=== PATIENT | female | born 1945 | race Caucasian/White ===

== ENCOUNTER → 2017-03-08 | Day surgery (SDC) | payer OTHER ==
[~2017-03-08] MED LIST: AMLO10TA2 PO; ASPI-630 PO; ATEN100T PO; ATOR20TA58 PO; BENA40TA2 PO; HYDR-2869 PO; IV RINGERS,LACTATED 1000ML 1,000 ML IV SCH; LIDOCAINE 1% 1 ML SYRINGE. ID PRN; LIDOCAINE 2% PF Vial for OR 5 ML VIAL. ONE; MIDAZOLAM HCL/PF 2 MG/2 ML VIAL. IV PRN; PROPOFOL 40 ML IV ONE; fentaNYL PF VIAL 100 MCG/2 ML VIAL IV PRN
[2017-03-08 08:30] VITALS: BP 157/76
--- NOTE | 2017-03-09 17:30 | PATHOLOGY ---
PATHOLOGY REPORT * * * * * * * * FINAL DIAGNOSIS: A. Colon biopsies, transverse colon polyp: - Tubular adenoma. B. Sigmoid colon polypectomy: - Tubular adenoma with high-grade dysplasia. See comment. COMMENT: Sections of the transverse colon biopsy reveal a tubular adenoma showing no high-grade dysplasia or evidence of malignancy. Sections of the sigmoid colon polypectomy reveal a tubular adenoma showing high-grade dysplasia. There is no high-grade dysplasia present at the base of the polyp. The case is also examined by Dr. Mary Chun, who concurs with the diagnosis. (JPM:mgr; 03/09/2017) REPORT ELECTRONICALLY SIGNED BY: Dewayne Portillo M.D. DATE/TIME: 03/09/2017 17:29 * * * * * * * * GROSS PATHOLOGY: A. Received in formalin labeled "Alison Nelson, transverse colon polyp," are multiple segments of miguel soft tissue measuring from 0.2 up to 0.6 cm in maximum dimension. The specimen is submitted entirely in cassette A1. B. Received in formalin labeled "sigmoid polyp," is a segment of polypoid miguel soft tissue measuring 1.3 x 0.7 x 0.5 cm in maximum dimension. The margin is inked and the specimen is bisected and submitted entirely in cassette B1. (JPM; 03/08/17) INITIAL CPT CODE(S): A; 13037 B; 89060 Professional services performed by [facility] at [address] [address] Technical services performed by [facility] at [address] [place] [address], [facility] [address], [place] [address]. SPECIMEN(S) RECEIVED: A.Transverse colon polyp B.Sigmoid polyp CLINICAL HISTORY: Screening PATIENT: ALISON NELSON /AGE: 612/11/1945 (Age: 71) PATIENT #: [id number] ALT CASE #: SPECIMEN COLLECTION DATE: 03/08/2017 SPECIMEN RECEIVED DATE: 03/08/2017 [facility] - [address] [place] [address] - PHONE: [phone] * * * END OF REPORT * * *
== END | disposition home or self-care (01) ==
LOC: ENDOS 06:20
PROVIDERS: ATTEND Internal Medicine Gastroenterology
DX: Z12.11 Encounter for screening for malignant neoplasm of colon (principal); D12.3 Benign neoplasm of transverse colon; D12.5 Benign neoplasm of sigmoid colon; K64.0 First degree hemorrhoids; E78.00 Pure hypercholesterolemia, unspecified; I10 Essential (primary) hypertension; M19.91 Primary osteoarthritis, unspecified site; Z87.39 Personal history of other diseases of the musculoskeletal system and connective tissue; Z90.49 Acquired absence of other specified parts of digestive tract
CPT/HCPCS: 45385; J2704; J2001

== ENCOUNTER 2017-07-03 08:18 | Inpatient (IN) | payer OTHER ==
[~2017-07-03] VITALS: Ht 172.7 cm; Wt 141.1 kg
[~2017-07-03 08:18] MED LIST changes: -IV RINGERS,LACTATED 1000ML 1,000 ML IV SCH; -LIDOCAINE 1% 1 ML SYRINGE. ID PRN; -LIDOCAINE 2% PF Vial for OR 5 ML VIAL. ONE; -MIDAZOLAM HCL/PF 2 MG/2 ML VIAL. IV PRN; -PROPOFOL 40 ML IV ONE; -fentaNYL PF VIAL 100 MCG/2 ML VIAL IV PRN
[2017-07-03 08:47] LABS: BASO # 0.1 x10^3/uL (0.0-0.2); BASO % 1 % (0-3); EOS % 2 % (0-3); HEMATOCRIT 33.4 % (36.0-47.0); HEMOGLOBIN 10.8 g/dL (12.0-15.5); LYMPH % 18 % (24-48); MEAN CORPUSCULAR HEMOGLOBIN 30 pg (25-35); MEAN CORPUSCULAR HGB CONC 32 g/dL (31-37); MEAN CORPUSCULAR VOLUME 93 fL (79-100); MONO % 7 % (0-9); NEUT % 72 % (31-73); PLATELET COUNT 422 x10^3/uL (140-400); RED BLOOD COUNT 3.59 x10^6/uL (3.50-5.40); RED CELL DISTRIBUTION WIDTH 14.6 % (11.5-14.5); WHITE BLOOD COUNT 11.2 x10^3/uL (4.0-11.0)
[2017-07-03 08:49] LABS: CALCIUM 8.9 mg/dL (8.5-10.1); CREATININE 0.9 mg/dL (0.6-1.0); GFR 62.1; POTASSIUM 3.5 mmol/L (3.5-5.1)
[2017-07-03 08:52] LABS: NEG OBC FOB NEG; POS OBC FOB POS
[2017-07-03 08:55] LABS: ALBUMIN 2.4 g/dL (3.4-5.0); ALBUMIN/GLOBULIN RATIO 0.5 (1.0-1.7); INR 1.1 (0.8-1.1); PROTHROMBIN TIME PATIENT 13.6 SEC (11.7-14.0); TOTAL BILIRUBIN 0.3 mg/dL (0.2-1.0); TOTAL PROTEIN 6.9 g/dL (6.4-8.2)
--- NOTE | 2017-07-03 09:18 | PHYS DOC ---
Past Medical History Past Medical History: Arthritis, High Cholesterol, Hypertension Past Surgical History: Hysterectomy, Other Additional Past Surgical Histo: COLONOSCOPY, L ANKLE Alcohol Use: None Drug Use: None Adult General Chief Complaint Chief Complaint: BLOODY STOOL HPI HPI Patient is a 71 year old female who drove herself to the ED with the complaint of black, tarry stools for 2 days. She has had maybe 6 total tarry stools. They are very loose and she sometimes is incontinent of stool. She's had a lot of gas. This morning her stool was black but also looked like it had some blood in it. She has no pain at this time. Patient states last week she had an episode of abdominal pain mostly right upper quadrant and she vomited 4-5 times. She didn't know if it might be some kind of virus. She also had a headache with it and she took "lots of aspirin" at that time. The symptoms are all gone and she was better for several days before the tarry stool started. Patient has never had a GI bleed. She did have a colonoscopy in February and had an abnormal polyp and is supposed to have another one in a year. She's never had an EGD. She denies taking a blood thinner. She does take aspirin 81 mg. No history of GI problems. PCP is Dr. Sears. She did take her scheduled medications this morning but otherwise has been nothing by mouth since she woke up this morning. Review of Systems Review of Systems Constitutional: Denies fever or chills [] HENT: Denies nasal congestion or sore throat [] Respiratory: Denies cough or shortness of breath [] Cardiovascular: Denies chest pain GI: As in history of present illness : Denies dysuria or hematuria [] Musculoskeletal: Denies back pain or joint pain [] Integument: Denies rash or skin lesions [] Neurologic: Denies headache, focal weakness or sensory changes [] Allergies Allergies Allergies Coded Allergies Type Severity Reaction Last Updated Verified No Known Drug Allergies 03/08/17 No Physical Exam Physical Exam Constitutional: Obese female, alert, warm and dry, mentating normally, ambulatory. HENT: Normocephalic, atraumatic, bilateral external ears normal, oropharynx moist, nose normal. [] Eyes: conjunctiva normal, no discharge. [] Neck: Normal range of motion, no stridor. [] Cardiovascular:Heart rate regular rhythm, no murmur [] Lungs & Thorax: Bilateral breath sounds clear to auscultation [] Abdomen: Bowel sounds normal, soft, no tenderness, no masses, no pulsatile masses. [] Rectal: Black, tarry stool present externally which was sent for Hemoccult. Skin: Warm, dry, no erythema, no rash. [] Extremities: No tenderness, no cyanosis, no clubbing, ROM intact, no edema. [] Neurologic: Alert and oriented X 3, normal motor function, no focal deficits noted. [] Current Patient Data Vital Signs Vital Signs Date Time Temp Pulse Resp B/P (MAP) Pulse Ox O2 Delivery O2 Flow Rate FiO2 07/03/17 08:59 61 18 124/59 (80) 95 Room Air 07/03/17 08:20 97.8 97.8 Lab Values Laboratory Tests Test 07/03/17 08:35 White Blood Count 11.2 x10^3/uL (4.0-11.0) H Red Blood Count 3.59 x10^6/uL (3.50-5.40) Hemoglobin 10.8 g/dL (12.0-15.5) L Hematocrit 33.4 % (36.0-47.0) L Mean Corpuscular Volume 93 fL (79-100) Mean Corpuscular Hemoglobin 30 pg (25-35) Mean Corpuscular Hemoglobin Concent 32 g/dL (31-37) Red Cell Distribution Width 14.6 % (11.5-14.5) H Platelet Count 422 x10^3/uL (140-400) H Neutrophils (%) (Auto) 72 % (31-73) Lymphocytes (%) (Auto) 18 % (24-48) L Monocytes (%) (Auto) 7 % (0-9) Eosinophils (%) (Auto) 2 % (0-3) Basophils (%) (Auto) 1 % (0-3) Neutrophils # (Auto) 8.0 x10^3uL (1.8-7.7) H Lymphocytes # (Auto) 2.0 x10^3/uL (1.0-4.8) Monocytes # (Auto) 0.8 x10^3/uL (0.0-1.1) Eosinophils # (Auto) 0.2 x10^3/uL (0.0-0.7) Basophils # (Auto) 0.1 x10^3/uL (0.0-0.2) Prothrombin Time 13.6 SEC (11.7-14.0) Prothrombin Time INR 1.1 (0.8-1.1) PTT 29 SEC (24-38) Stool Occult Blood Positive (NEG) Sodium Level 139 mmol/L (136-145) Potassium Level 3.5 mmol/L (3.5-5.1) Chloride Level 102 mmol/L (98-107) Carbon Dioxide Level 27 mmol/L (21-32) Anion Gap 10 (6-14) Blood Urea Nitrogen 29 mg/dL (7-20) H Creatinine 0.9 mg/dL (0.6-1.0) Estimated GFR (Cockcroft-Gault) 62.1 BUN/Creatinine Ratio 32 (6-20) H Glucose Level 145 mg/dL (70-99) H Calcium Level 8.9 mg/dL (8.5-10.1) Total Bilirubin 0.3 mg/dL (0.2-1.0) Aspartate Amino Transferase (AST) 18 U/L (15-37) Alanine Aminotransferase (ALT) 24 U/L (14-59) Alkaline Phosphatase 91 U/L (46-116) Total Protein 6.9 g/dL (6.4-8.2) Albumin 2.4 g/dL (3.4-5.0) L Albumin/Globulin Ratio 0.5 (1.0-1.7) L Laboratory Tests 07/03/17 08:35 Laboratory Tests 07/03/17 08:35 EKG EKG [] Radiology/Procedures Radiology/Procedures [] Course & Med Decision Making Course & Med Decision Making Pertinent Labs and Imaging studies reviewed. (See chart for details) 71-year-old female presents with 2 days of tarry stools. Her stool is heme positive. She is not tachycardic or hypotensive but she is anemic. She does not have a history of anemia. She needs to have GI consultation for upper endoscopy and have her CBC followed. I recommend to the patient that we admit her to the hospital for this. She is agreeable to that plan. I discussed the case with Dr. gonzalez, [facility]. He will admit her. I wrote bridge orders. We agreed to consult Dr. Singleton, the patient's software development project manager, to see her in the hospital. [] Dragon Disclaimer Dragon Disclaimer This electronic medical record was generated, in whole or in part, using a voice recognition dictation system. Departure Departure Impression: Primary Impression: GI bleed Additional Impression: Anemia Disposition: 09 ADMITTED INPATIENT Admitting Physician: Maryuri Gonzalez Condition: STABLE Referrals: LOS SEARS MD (PCP) Problem Qualifiers CARLOS ISLAS MD Jul 03, 2017 09:18
[2017-07-03] MEDS ORDERED: PANTOPRAZOLE IV PUSH 40 MG VIAL. IVP ONE (09:45)
[2017-07-03] MEDS: IV NORMAL SALINE 1000ML BAG 1,000 ML IV SCH ×2 (10:00→20:03)
[2017-07-03 10:15] VITALS: BP 141/76
--- NOTE | 2017-07-03 10:45 | PDOC2 ---
CONSULT Date of Consult Date of Consult DATE: 07/03/17 TIME: 10:43 Reason for Consult Reason for Consult: Acute blood loss anemia/melena Current Problem List Problem List Problems Medical Problems: (1) Anemia Status: Acute (2) GI bleed Status: Acute Current Medications Current Medications Current Medications Sodium Chloride 1,000 ml @ 100 mls/hr Q10H IV Last administered on 07/03/17 10:00; Start 07/03/17 at 09:40; Stop 07/04/17 at 09:39 Pantoprazole Sodium (PROTONIX VIAL for IV PUSH) 40 mg 1X ONCE IVP Last administered on 07/03/17 10:00; Start 07/03/17 at 09:45; Stop 07/03/17 at 09 :46; Status DC Active Scripts Active Reported Hydralazine Hcl 50 Mg Tablet 50 Mg PO BID Aspirin 81 Mg Tab.chew 81 Mg PO Atorvastatin Calcium 20 Mg Tablet 20 Mg PO HS Amlodipine Besylate 10 Mg Tablet 10 Mg PO DAILY Benazepril Hcl 40 Mg Tablet 40 Mg PO DAILY Atenolol 100 Mg Tablet 100 Mg PO DAILY Allergies Allergies: Coded Allergies: No Known Drug Allergies (Unverified , 03/08/17) Vitals VITALS Vital Signs Date Time Temp Pulse Resp B/P (MAP) Pulse Ox O2 Delivery O2 Flow Rate FiO2 07/03/17 09:59 62 18 132/69 (90) 95 Room Air 07/03/17 08:20 97.8 97.8 Labs Labs Laboratory Tests Test 07/03/17 08:35 White Blood Count 11.2 x10^3/uL (4.0-11.0) Red Blood Count 3.59 x10^6/uL (3.50-5.40) Hemoglobin 10.8 g/dL (12.0-15.5) Hematocrit 33.4 % (36.0-47.0) Mean Corpuscular Volume 93 fL (79-100) Mean Corpuscular Hemoglobin 30 pg (25-35) Mean Corpuscular Hemoglobin Concent 32 g/dL (31-37) Red Cell Distribution Width 14.6 % (11.5-14.5) Platelet Count 422 x10^3/uL (140-400) Neutrophils (%) (Auto) 72 % (31-73) Lymphocytes (%) (Auto) 18 % (24-48) Monocytes (%) (Auto) 7 % (0-9) Eosinophils (%) (Auto) 2 % (0-3) Basophils (%) (Auto) 1 % (0-3) Neutrophils # (Auto) 8.0 x10^3uL (1.8-7.7) Lymphocytes # (Auto) 2.0 x10^3/uL (1.0-4.8) Monocytes # (Auto) 0.8 x10^3/uL (0.0-1.1) Eosinophils # (Auto) 0.2 x10^3/uL (0.0-0.7) Basophils # (Auto) 0.1 x10^3/uL (0.0-0.2) Prothrombin Time 13.6 SEC (11.7-14.0) Prothromb Time International Ratio 1.1 (0.8-1.1) Activated Partial Thromboplast Time 29 SEC (24-38) Stool Occult Blood Positive (NEG) Sodium Level 139 mmol/L (136-145) Potassium Level 3.5 mmol/L (3.5-5.1) Chloride Level 102 mmol/L (98-107) Carbon Dioxide Level 27 mmol/L (21-32) Anion Gap 10 (6-14) Blood Urea Nitrogen 29 mg/dL (7-20) Creatinine 0.9 mg/dL (0.6-1.0) Estimated GFR (Cockcroft-Gault) 62.1 BUN/Creatinine Ratio 32 (6-20) Glucose Level 145 mg/dL (70-99) Calcium Level 8.9 mg/dL (8.5-10.1) Total Bilirubin 0.3 mg/dL (0.2-1.0) Aspartate Amino Transf (AST/SGOT) 18 U/L (15-37) Alanine Aminotransferase (ALT/SGPT) 24 U/L (14-59) Alkaline Phosphatase 91 U/L (46-116) Total Protein 6.9 g/dL (6.4-8.2) Albumin 2.4 g/dL (3.4-5.0) Albumin/Globulin Ratio 0.5 (1.0-1.7) Laboratory Tests Test 07/03/17 08:35 White Blood Count 11.2 x10^3/uL (4.0-11.0) Red Blood Count 3.59 x10^6/uL (3.50-5.40) Hemoglobin 10.8 g/dL (12.0-15.5) Hematocrit 33.4 % (36.0-47.0) Mean Corpuscular Volume 93 fL (79-100) Mean Corpuscular Hemoglobin 30 pg (25-35) Mean Corpuscular Hemoglobin Concent 32 g/dL (31-37) Red Cell Distribution Width 14.6 % (11.5-14.5) Platelet Count 422 x10^3/uL (140-400) Neutrophils (%) (Auto) 72 % (31-73) Lymphocytes (%) (Auto) 18 % (24-48) Monocytes (%) (Auto) 7 % (0-9) Eosinophils (%) (Auto) 2 % (0-3) Basophils (%) (Auto) 1 % (0-3) Neutrophils # (Auto) 8.0 x10^3uL (1.8-7.7) Lymphocytes # (Auto) 2.0 x10^3/uL (1.0-4.8) Monocytes # (Auto) 0.8 x10^3/uL (0.0-1.1) Eosinophils # (Auto) 0.2 x10^3/uL (0.0-0.7) Basophils # (Auto) 0.1 x10^3/uL (0.0-0.2) Prothrombin Time 13.6 SEC (11.7-14.0) Prothromb Time International Ratio 1.1 (0.8-1.1) Activated Partial Thromboplast Time 29 SEC (24-38) Stool Occult Blood Positive (NEG) Sodium Level 139 mmol/L (136-145) Potassium Level 3.5 mmol/L (3.5-5.1) Chloride Level 102 mmol/L (98-107) Carbon Dioxide Level 27 mmol/L (21-32) Anion Gap 10 (6-14) Blood Urea Nitrogen 29 mg/dL (7-20) Creatinine 0.9 mg/dL (0.6-1.0) Estimated GFR (Cockcroft-Gault) 62.1 BUN/Creatinine Ratio 32 (6-20) Glucose Level 145 mg/dL (70-99) Calcium Level 8.9 mg/dL (8.5-10.1) Total Bilirubin 0.3 mg/dL (0.2-1.0) Aspartate Amino Transf (AST/SGOT) 18 U/L (15-37) Alanine Aminotransferase (ALT/SGPT) 24 U/L (14-59) Alkaline Phosphatase 91 U/L (46-116) Total Protein 6.9 g/dL (6.4-8.2) Albumin 2.4 g/dL (3.4-5.0) Albumin/Globulin Ratio 0.5 (1.0-1.7) Assessment/Plan Assessment/Plan Melena- with acute blood loss anemia and ASA use. Most likely secondary to ASA induced DU Plan serial blood counts/transfusional support as needed PPI therapy EGD tentatively tomorrow to further assess Full note dictated VERONICA PURCELL MD Jul 03, 2017 10:45
[2017-07-03] MEDS: PANTOPRAZOLE IV PUSH 40 MG VIAL. IVP SCH (10:57)
[2017-07-03] MEDS: amLODIPine BESYLATE 10 MG TABLET PO SCH (12:00)
[2017-07-03] MEDS: ATENOLOL 50 MG TABLET. PO SCH (12:00)
[2017-07-03] MEDS: LISINOPRIL 40 MG TABLET. PO SCH (12:00)
[2017-07-03 15:35] VITALS: BP 116/61
[2017-07-03 16:32] LABS: HEMATOCRIT 28.3 % (36.0-47.0); HEMOGLOBIN 9.4 g/dL (12.0-15.5); RED BLOOD COUNT 3.04 x10^6/uL (3.50-5.40); RED CELL DISTRIBUTION WIDTH 14.4 % (11.5-14.5); WHITE BLOOD COUNT 8.5 x10^3/uL (4.0-11.0)
--- NOTE | 2017-07-03 16:34 | PDOC1 ---
History and Physical Date of Admission Date of Admission DATE: 07/03/17 TIME: 16:32 History of Present Illness History of Present Illness Ms. Weaver, is a 71 year old female who drove herself to the ED with the complaint of black, tarry stools for 2 days. She has had maybe 6 total tarry stools. They are very loose and she sometimes is incontinent of stool. She's had a lot of gas. This morning her stool was black but also looked like it had some blood in it. She has no pain at this time. Patient states last week she had an episode of abdominal pain mostly right upper quadrant and she vomited 4- 5 times. She didn't know if it might be some kind of virus. She also had a headache with it and she took "lots of aspirin" at that time. The symptoms are all gone and she was better for several days before the tarry stool started. Patient has never had a GI bleed. She did have a colonoscopy in February and had an abnormal polyp and is supposed to have another one in a year. She's never had an EGD. She denies taking a blood thinner. She does take aspirin 81 mg. No history of GI problems. PCP is Dr. Sosa. Past Medical History Cardiovascular: HTN Family History Family History: Family History Unknown Social History Smoke: No ALCOHOL: none Current Problem List Problem List Problems Medical Problems: (1) Anemia Status: Acute (2) GI bleed Status: Acute Problems: Current Medications Current Medications Current Medications Sodium Chloride 1,000 ml @ 100 mls/hr Q10H IV Last administered on 07/03/17 10:00; Start 07/03/17 at 09:40; Stop 07/04/17 at 09:39 Pantoprazole Sodium (PROTONIX VIAL for IV PUSH) 40 mg 1X ONCE IVP Last administered on 07/03/17 10:00; Start 07/03/17 at 09:45; Stop 07/03/17 at 09 :46; Status DC Pantoprazole Sodium (PROTONIX VIAL for IV PUSH) 40 mg DAILYAC IVP ; Start 07/03 at 11:00 Amlodipine Besylate (Norvasc) 10 mg DAILY PO ; Start 07/03/17 at 12:00 Atorvastatin Calcium (Lipitor) 20 mg HS PO ; Start 07/03/17 at 21:00 Atenolol (Tenormin) 100 mg DAILY PO ; Start 07/03/17 at 12:00 Lisinopril (Prinivil) 40 mg DAILY PO ; Start 07/03/17 at 12:00 Active Scripts Active Reported Hydralazine Hcl 50 Mg Tablet 50 Mg PO BID Aspirin 81 Mg Tab.chew 81 Mg PO Atorvastatin Calcium 20 Mg Tablet 20 Mg PO HS Amlodipine Besylate 10 Mg Tablet 10 Mg PO DAILY Benazepril Hcl 40 Mg Tablet 40 Mg PO DAILY Atenolol 100 Mg Tablet 100 Mg PO DAILY Allergies Allergies: Coded Allergies: No Known Drug Allergies (Unverified , 03/08/17) ROS General: YES: Malaise, No: Chills, Night Sweats, Fatigue, Appetite, Other PSYCHOLOGICAL ROS: No: Anxiety, Behavioral Disorder, Concentration difficultie , Decreased libido, Depression, Disorientation, Hallucinations, Hostility, Irritablity, Memory difficulties, Mood Swings, Obsessive thoughts, Physical abuse, Sexual abuse, Sleep disturbances, Suicidal ideation, Other Eyes: No Blurry vision, No Decreased vision, No Double vision, No Dry eyes, No Excessive tearing, No Eye Pain, No Itchy Eyes, No Loss of vision, No Photophobia , No Scotomata, No Uses contacts, No Uses glasses, No Other HEENT: No: Heacaches, Visual Changes, Hearing change, Nasal congestion, Nasal discharge, Oral lesions, Sinus pain, Sore Throat, Epistaxis, Sneezing, Snoring, Tinnitus, Vertigo, Vocal changes, Other Hematological and Lymphatic: No: Bleeding Problems, Blood Clots, Blood Transfusions, Brusing, Night Sweats, Pallor, Swollen Lymph Nodes, Other Respiratory: YES: Cough, No: Hemoptysis, Orthopnea, Pleuritic Pain, Shortness of breath, SOB with excertion, Sputum Changes, Stridor, Tachypnea, Wheezing, Other Cardiovascular: No Chest Pain, No Palpitations, No Orthopnea, No Paroxysmal Noc. Dyspnea, No Edema, No Lt Headedness, No Other Gastrointestinal: Yes Melena, No Nausea, No Vomiting, No Abdominal Pain, No Diarrhea, No Constipation, No Hematochezia, No Other Genitourinary: No Dysuria, No Frequency, No Incontinence, No Hematuria, No Retention, No Discharge, No Urgency, No Pain, No Flank Pain, No Other, No , No , No , No , No , No , No Musculoskeletal: No Gait Disturbance, No Joint Pain, No Joint Stiffness, No Joint Swelling, No Muscle Pain, No Muscular Weakness, No Pain In:, No Swelling In:, No Other Neurological: No Behavorial Changes, No Bowel/Bladder ControlChng, No Confusion , No Dizziness, No Gait Disturbance, No Headaches, No Impaired Coord/balance, No Memory Loss, No Numbness/Tingling, No Seizures, No Speech Problems, No Tremors, No Visual Changes, No Weakness, No Other Skin: No Dry Skin, No Eczema, No Hair Changes, No Lumps, No Mole Changes, No Mottling, No Nail Changes, No Pruritus, No Rash, No Skin Lesion Changes, No Other, No Acne Physical Exam General: Alert, Oriented X3, Cooperative, No acute distress HEENT: Atraumatic, PERRLA, Mucous membr. moist/pink Lungs: Clear to auscultation Heart: no gallops, no murmurs Abdomen: Normal bowel sounds, Soft (not tender, very obese) Extremities: No clubbing, No cyanosis, No edema, Normal pulses Skin: No rashes, No breakdown Neuro: Normal tone, Cranial nerves 3-12 NL Psych/Mental Status: Mood NL Vitals Vitals Vital Signs Date Time Temp Pulse Resp B/P (MAP) Pulse Ox O2 Delivery O2 Flow Rate FiO2 07/03/17 15:35 97.7 63 18 116/61 (79) 95 Room Air 97.7 Labs Labs Laboratory Tests Test 07/03/17 08:35 White Blood Count 11.2 x10^3/uL (4.0-11.0) Red Blood Count 3.59 x10^6/uL (3.50-5.40) Hemoglobin 10.8 g/dL (12.0-15.5) Hematocrit 33.4 % (36.0-47.0) Mean Corpuscular Volume 93 fL (79-100) Mean Corpuscular Hemoglobin 30 pg (25-35) Mean Corpuscular Hemoglobin Concent 32 g/dL (31-37) Red Cell Distribution Width 14.6 % (11.5-14.5) Platelet Count 422 x10^3/uL (140-400) Neutrophils (%) (Auto) 72 % (31-73) Lymphocytes (%) (Auto) 18 % (24-48) Monocytes (%) (Auto) 7 % (0-9) Eosinophils (%) (Auto) 2 % (0-3) Basophils (%) (Auto) 1 % (0-3) Neutrophils # (Auto) 8.0 x10^3uL (1.8-7.7) Lymphocytes # (Auto) 2.0 x10^3/uL (1.0-4.8) Monocytes # (Auto) 0.8 x10^3/uL (0.0-1.1) Eosinophils # (Auto) 0.2 x10^3/uL (0.0-0.7) Basophils # (Auto) 0.1 x10^3/uL (0.0-0.2) Prothrombin Time 13.6 SEC (11.7-14.0) Prothromb Time International Ratio 1.1 (0.8-1.1) Activated Partial Thromboplast Time 29 SEC (24-38) Stool Occult Blood Positive (NEG) Sodium Level 139 mmol/L (136-145) Potassium Level 3.5 mmol/L (3.5-5.1) Chloride Level 102 mmol/L (98-107) Carbon Dioxide Level 27 mmol/L (21-32) Anion Gap 10 (6-14) Blood Urea Nitrogen 29 mg/dL (7-20) Creatinine 0.9 mg/dL (0.6-1.0) Estimated GFR (Cockcroft-Gault) 62.1 BUN/Creatinine Ratio 32 (6-20) Glucose Level 145 mg/dL (70-99) Calcium Level 8.9 mg/dL (8.5-10.1) Total Bilirubin 0.3 mg/dL (0.2-1.0) Aspartate Amino Transf (AST/SGOT) 18 U/L (15-37) Alanine Aminotransferase (ALT/SGPT) 24 U/L (14-59) Alkaline Phosphatase 91 U/L (46-116) Total Protein 6.9 g/dL (6.4-8.2) Albumin 2.4 g/dL (3.4-5.0) Albumin/Globulin Ratio 0.5 (1.0-1.7) Laboratory Tests Test 07/03/17 08:35 White Blood Count 11.2 x10^3/uL (4.0-11.0) Red Blood Count 3.59 x10^6/uL (3.50-5.40) Hemoglobin 10.8 g/dL (12.0-15.5) Hematocrit 33.4 % (36.0-47.0) Mean Corpuscular Volume 93 fL (79-100) Mean Corpuscular Hemoglobin 30 pg (25-35) Mean Corpuscular Hemoglobin Concent 32 g/dL (31-37) Red Cell Distribution Width 14.6 % (11.5-14.5) Platelet Count 422 x10^3/uL (140-400) Neutrophils (%) (Auto) 72 % (31-73) Lymphocytes (%) (Auto) 18 % (24-48) Monocytes (%) (Auto) 7 % (0-9) Eosinophils (%) (Auto) 2 % (0-3) Basophils (%) (Auto) 1 % (0-3) Neutrophils # (Auto) 8.0 x10^3uL (1.8-7.7) Lymphocytes # (Auto) 2.0 x10^3/uL (1.0-4.8) Monocytes # (Auto) 0.8 x10^3/uL (0.0-1.1) Eosinophils # (Auto) 0.2 x10^3/uL (0.0-0.7) Basophils # (Auto) 0.1 x10^3/uL (0.0-0.2) Prothrombin Time 13.6 SEC (11.7-14.0) Prothromb Time International Ratio 1.1 (0.8-1.1) Activated Partial Thromboplast Time 29 SEC (24-38) Stool Occult Blood Positive (NEG) Sodium Level 139 mmol/L (136-145) Potassium Level 3.5 mmol/L (3.5-5.1) Chloride Level 102 mmol/L (98-107) Carbon Dioxide Level 27 mmol/L (21-32) Anion Gap 10 (6-14) Blood Urea Nitrogen 29 mg/dL (7-20) Creatinine 0.9 mg/dL (0.6-1.0) Estimated GFR (Cockcroft-Gault) 62.1 BUN/Creatinine Ratio 32 (6-20) Glucose Level 145 mg/dL (70-99) Calcium Level 8.9 mg/dL (8.5-10.1) Total Bilirubin 0.3 mg/dL (0.2-1.0) Aspartate Amino Transf (AST/SGOT) 18 U/L (15-37) Alanine Aminotransferase (ALT/SGPT) 24 U/L (14-59) Alkaline Phosphatase 91 U/L (46-116) Total Protein 6.9 g/dL (6.4-8.2) Albumin 2.4 g/dL (3.4-5.0) Albumin/Globulin Ratio 0.5 (1.0-1.7) VTE Prophylaxis Ordered VTE Prophylaxis Devices: Yes VTE Pharmacological Prophylaxi: Contraindicated Assessment/Plan Assessment/Plan GI bleed, upper, anemia of acute blood loss from gastritis, start IV PPI acute melena overuse of aspirin, NSAID gastric reaction, IV PPI, condsider carafate, may get EGD in AM, from GI consult, on clears morbid obesity, BMI 47 htn, multiple agents, hold one for bleeding, vitals good admit DORON PHAN MD Jul 03, 2017 16:34
--- NOTE | 2017-07-03 17:20 | CONS ---
DATE OF CONSULTATION: 07/03/2017 REFERRING PHYSICIAN: Maryuri Gonzalez MD. REASON FOR CONSULTATION: Acute blood loss anemia and melena with aspirin use. HISTORY OF PRESENT ILLNESS: A 71-year-old female with past medical history significant for arthritis, hyperlipidemia, hypertension, status post hysterectomy, is seen with some right-sided abdominal pain. She began taking aspirin 3-4 at a time for headaches. Over the past several days, she has passed approximately six dark stools, which have been melenic and foul smelling in nature. Never had ulcers before. Denies any hematemesis, dysphagia, odynophagia. Prior colonoscopy was unrevealing for pathology. With the pain and the persistent bleeding stools, she has been admitted for further evaluation and care. PAST MEDICAL HISTORY: Arthritis, hyperlipidemia, hypertension, status post hysterectomy. ALLERGIES: None. MEDICATIONS: Include Protonix 40 mg daily. SOCIAL HISTORY: She is retired. Does not drink or smoke. FAMILY HISTORY: Noncontributory. REVIEW OF SYSTEMS: Per records. PHYSICAL EXAMINATION: GENERAL: A well-nourished, well-developed, pale female. VITAL SIGNS: Temperature is 97.8, pulse 52, respirations 18, blood pressure is 132/69. HEENT: Head is normocephalic, atraumatic. Pupils and extraocular movements are not tested. Sclerae are anicteric. NECK: Supple. LUNGS: Clear. CARDIOVASCULAR: Reveals an S1, S2 without S3, S4 or appreciable murmur. ABDOMEN: Soft abdomen, normal bowel sounds, without appreciable hepatosplenomegaly, with infraumbilical hysterectomy incision. EXTREMITIES: Reveals no cyanosis, clubbing or edema. LABORATORY STUDIES: Sodium 139, potassium 3.5, chloride 102, BUN 29, creatinine 0.9, glucose is 145, calcium 8.9. Total bilirubin 0.3, AST of 18, ALT of 24, alkaline phosphatase of 91, total protein 6.9, albumin 2.4. INR is 1.1. Hemoglobin 10.8, hematocrit 33.4, white count 11.2. IMPRESSION: Acute blood loss anemia with nonsteroidal antiinflammatory drug use, melena is most likely secondary to nonsteroidal antiinflammatory drug--induced peptic ulcer. We will recommend PPI therapy, serial blood counts, transfusion support and EGD tomorrow to further assess. Risks and benefits have been discussed with the patient and she is willing to proceed at this time. VERONICA PURCELL MD DR: KARSTEN/cyn JOB#: [id number] / [id number] MARYURI Garrison MD
[2017-07-03 19:00] VITALS: BP 146/82
[2017-07-03] MEDS: ATORVASTATIN CALCIUM 20 MG TABLET PO SCH (20:04)
[2017-07-03 23:00] VITALS: BP 142/63
[2017-07-04 03:00] VITALS: BP 129/74
[2017-07-04 04:17] LABS: BASO # 0.1 x10^3/uL (0.0-0.2); BASO % 1 % (0-3); EOS % 2 % (0-3); HEMATOCRIT 26.7 % (36.0-47.0); HEMOGLOBIN 8.6 g/dL (12.0-15.5); LYMPH # 2.1 x10^3/uL (1.0-4.8); LYMPH % 23 % (24-48); MEAN CORPUSCULAR HEMOGLOBIN 30 pg (25-35); MEAN CORPUSCULAR HGB CONC 32 g/dL (31-37); MEAN CORPUSCULAR VOLUME 93 fL (79-100); MONO % 7 % (0-9); NEUT % 67 % (31-73); PLATELET COUNT 326 x10^3/uL (140-400); RED BLOOD COUNT 2.86 x10^6/uL (3.50-5.40); RED CELL DISTRIBUTION WIDTH 14.6 % (11.5-14.5); WHITE BLOOD COUNT 9.2 x10^3/uL (4.0-11.0)
[2017-07-04] MEDS: IV NORMAL SALINE 1000ML BAG 1,000 ML IV SCH (05:58)
[2017-07-04 07:00] VITALS: BP 112/64
[2017-07-04] MEDS: PANTOPRAZOLE IV PUSH 40 MG VIAL. IVP SCH (07:46)
[2017-07-04] MEDS: amLODIPine BESYLATE 10 MG TABLET PO SCH (08:53)
[2017-07-04] MEDS: LISINOPRIL 40 MG TABLET. PO SCH (08:54)
[2017-07-04] MEDS: ATENOLOL 50 MG TABLET. PO SCH (08:54)
[2017-07-04] MEDS ORDERED: IV RINGERS,LACTATED 1000ML 1,000 ML IV SCH (09:08)
[2017-07-04] MEDS ORDERED: LIDOCAINE 1% PF 2 ML VIAL. ID PRN (09:15)
[2017-07-04] MEDS ORDERED: ONDANSETRON PF 4 MG/2 ML VIAL. IV PRN (09:15)
[2017-07-04] MEDS ORDERED: PROCHLORPERAZINE 10 MG/2 ML VIAL. IV PRN (09:15)
[2017-07-04] MEDS ORDERED: fentaNYL PF VIAL 100 MCG/2 ML VIAL IV PRN ×2 (09:15)
[2017-07-04] MEDS ORDERED: MORPHINE SULFATE 2 MG/ML DISP.SYRIN. IV PRN (09:15)
[2017-07-04] MEDS ORDERED: HYDROmorphone 2 MG/ML VIAL IV PRN (09:15)
[2017-07-04 11:00] VITALS: BP 120/43
--- NOTE | 2017-07-04 11:15 | PDOC ---
PROGRESS NOTES Chief Complaint Chief Complaint Upper GI bleed Melena Morbid obesity BMI 47.7 Hypertension, controlled Headaches History of Present Illness History of Present Illness Still continues to have melena Vital signs stable, asymptomatic, "feels fine" Hemoglobin dropping from 10 on admission, down to 9, now 8.6. Platelets adequate Stool occult positive Plan: EGD later 4 PM H&H again tomorrow Continue PPI Needs to stop aspirin 81 and NSAIDs, she understands She claims she would finish a bottle of NSAIDs in 2 days because of headaches Did tell her about [id number] capsaicin cream, Voltaren gel for arthritis if she gets it Continue IVF Vitals Vitals Vital Signs Date Time Temp Pulse Resp B/P (MAP) Pulse Ox O2 Delivery O2 Flow Rate FiO2 07/04/17 08:54 72 112/64 07/04/17 07:30 Room Air 07/04/17 07:00 97.1 18 98 97.1 Physical Exam General: Alert, Oriented X3, Cooperative, No acute distress Abdomen: Normal bowel sounds, Soft (not tender, very obese) Extremities: No clubbing, No cyanosis, No edema, Normal pulses Skin: No rashes, No breakdown Labs LABS Laboratory Tests Test 07/04/17 03:30 White Blood Count 9.2 x10^3/uL (4.0-11.0) Red Blood Count 2.86 x10^6/uL (3.50-5.40) Hemoglobin 8.6 g/dL (12.0-15.5) Hematocrit 26.7 % (36.0-47.0) Mean Corpuscular Volume 93 fL (79-100) Mean Corpuscular Hemoglobin 30 pg (25-35) Mean Corpuscular Hemoglobin Concent 32 g/dL (31-37) Red Cell Distribution Width 14.6 % (11.5-14.5) Platelet Count 326 x10^3/uL (140-400) Neutrophils (%) (Auto) 67 % (31-73) Lymphocytes (%) (Auto) 23 % (24-48) Monocytes (%) (Auto) 7 % (0-9) Eosinophils (%) (Auto) 2 % (0-3) Basophils (%) (Auto) 1 % (0-3) Neutrophils # (Auto) 6.2 x10^3uL (1.8-7.7) Lymphocytes # (Auto) 2.1 x10^3/uL (1.0-4.8) Monocytes # (Auto) 0.6 x10^3/uL (0.0-1.1) Eosinophils # (Auto) 0.2 x10^3/uL (0.0-0.7) Basophils # (Auto) 0.1 x10^3/uL (0.0-0.2) Review of Systems Review of Systems Headaches otherwise rest of 14 point systems reviewed negative Assessment and Plan Assessmemt and Plan Problems Medical Problems: (1) Anemia Status: Acute (2) GI bleed Status: Acute Problems: Comment Review of Relevant I have reviewed the following items sarah (where applicable) has been applied. Labs Laboratory Tests Test 07/03/17 04:25 07/03/17 08:35 07/04/17 03:30 White Blood Count 8.5 x10^3/uL (4.0-11.0) 11.2 x10^3/uL (4.0-11.0) 9.2 x10^3/uL (4.0-11.0) Red Blood Count 3.04 x10^6/uL (3.50-5.40) 3.59 x10^6/uL (3.50-5.40) 2.86 x10^6/uL (3.50-5.40) Hemoglobin 9.4 g/dL (12.0-15.5) 10.8 g/dL (12.0-15.5) 8.6 g/dL (12.0-15.5) Hematocrit 28.3 % (36.0-47.0) 33.4 % (36.0-47.0) 26.7 % (36.0-47.0) Mean Corpuscular Volume 93 fL (79-100) 93 fL (79-100) 93 fL (79-100) Mean Corpuscular Hemoglobin 31 pg (25-35) 30 pg (25-35) 30 pg (25-35) Mean Corpuscular Hemoglobin Concent 33 g/dL (31-37) 32 g/dL (31-37) 32 g/dL (31-37) Red Cell Distribution Width 14.4 % (11.5-14.5) 14.6 % (11.5-14.5) 14.6 % (11.5-14.5) Platelet Count 339 x10^3/uL (140-400) 422 x10^3/uL (140-400) 326 x10^3/uL (140-400) Neutrophils (%) (Auto) 72 % (31-73) 67 % (31-73) Lymphocytes (%) (Auto) 18 % (24-48) 23 % (24-48) Monocytes (%) (Auto) 7 % (0-9) 7 % (0-9) Eosinophils (%) (Auto) 2 % (0-3) 2 % (0-3) Basophils (%) (Auto) 1 % (0-3) 1 % (0-3) Neutrophils # (Auto) 8.0 x10^3uL (1.8-7.7) 6.2 x10^3uL (1.8-7.7) Lymphocytes # (Auto) 2.0 x10^3/uL (1.0-4.8) 2.1 x10^3/uL (1.0-4.8) Monocytes # (Auto) 0.8 x10^3/uL (0.0-1.1) 0.6 x10^3/uL (0.0-1.1) Eosinophils # (Auto) 0.2 x10^3/uL (0.0-0.7) 0.2 x10^3/uL (0.0-0.7) Basophils # (Auto) 0.1 x10^3/uL (0.0-0.2) 0.1 x10^3/uL (0.0-0.2) Prothrombin Time 13.6 SEC (11.7-14.0) Prothromb Time International Ratio 1.1 (0.8-1.1) Activated Partial Thromboplast Time 29 SEC (24-38) Stool Occult Blood Positive (NEG) Sodium Level 139 mmol/L (136-145) Potassium Level 3.5 mmol/L (3.5-5.1) Chloride Level 102 mmol/L (98-107) Carbon Dioxide Level 27 mmol/L (21-32) Anion Gap 10 (6-14) Blood Urea Nitrogen 29 mg/dL (7-20) Creatinine 0.9 mg/dL (0.6-1.0) Estimated GFR (Cockcroft-Gault) 62.1 BUN/Creatinine Ratio 32 (6-20) Glucose Level 145 mg/dL (70-99) Calcium Level 8.9 mg/dL (8.5-10.1) Total Bilirubin 0.3 mg/dL (0.2-1.0) Aspartate Amino Transf (AST/SGOT) 18 U/L (15-37) Alanine Aminotransferase (ALT/SGPT) 24 U/L (14-59) Alkaline Phosphatase 91 U/L (46-116) Total Protein 6.9 g/dL (6.4-8.2) Albumin 2.4 g/dL (3.4-5.0) Albumin/Globulin Ratio 0.5 (1.0-1.7) Laboratory Tests Test 07/04/17 03:30 White Blood Count 9.2 x10^3/uL (4.0-11.0) Red Blood Count 2.86 x10^6/uL (3.50-5.40) Hemoglobin 8.6 g/dL (12.0-15.5) Hematocrit 26.7 % (36.0-47.0) Mean Corpuscular Volume 93 fL (79-100) Mean Corpuscular Hemoglobin 30 pg (25-35) Mean Corpuscular Hemoglobin Concent 32 g/dL (31-37) Red Cell Distribution Width 14.6 % (11.5-14.5) Platelet Count 326 x10^3/uL (140-400) Neutrophils (%) (Auto) 67 % (31-73) Lymphocytes (%) (Auto) 23 % (24-48) Monocytes (%) (Auto) 7 % (0-9) Eosinophils (%) (Auto) 2 % (0-3) Basophils (%) (Auto) 1 % (0-3) Neutrophils # (Auto) 6.2 x10^3uL (1.8-7.7) Lymphocytes # (Auto) 2.1 x10^3/uL (1.0-4.8) Monocytes # (Auto) 0.6 x10^3/uL (0.0-1.1) Eosinophils # (Auto) 0.2 x10^3/uL (0.0-0.7) Basophils # (Auto) 0.1 x10^3/uL (0.0-0.2) Medications Current Medications Sodium Chloride 1,000 ml @ 100 mls/hr Q10H IV Last administered on 07/04/17 05:58; Start 07/03/17 at 09:40; Stop 07/04/17 at 09:39; Status DC Pantoprazole Sodium (PROTONIX VIAL for IV PUSH) 40 mg 1X ONCE IVP Last administered on 07/03/17 10:00; Start 07/03/17 at 09:45; Stop 07/03/17 at 09 :46; Status DC Pantoprazole Sodium (PROTONIX VIAL for IV PUSH) 40 mg DAILYAC IVP Last administered on 07/04/17 07:46; Start 07/03/17 at 11:00 Amlodipine Besylate (Norvasc) 10 mg DAILY PO Last administered on 07/04/17 08 :53; Start 07/03/17 at 12:00 Atorvastatin Calcium (Lipitor) 20 mg HS PO Last administered on 07/03/17 20: 04; Start 07/03/17 at 21:00 Atenolol (Tenormin) 100 mg DAILY PO Last administered on 07/04/17 08:54; Start 07/03/17 at 12:00 Lisinopril (Prinivil) 40 mg DAILY PO Last administered on 07/04/17 08:54; Start 07/03/17 at 12:00 Ondansetron HCl (Zofran) 4 mg PRN Q6HRS PRN IV NAUSEA/VOMITING; Start at 09:15; Stop 07/04/17 at 18:00 Fentanyl Citrate (Fentanyl 2ml Vial) 25 mcg PRN Q5MIN PRN IV MILD PAIN; Start 07/04/17 at 09:15; Stop 07/04/17 at 18:00 Fentanyl Citrate (Fentanyl 2ml Vial) 50 mcg PRN Q5MIN PRN IV MODERATE TO SEVERE PAIN; Start 07/04/17 at 09:15; Stop 07/04/17 at 09:16; Status DC Morphine Sulfate 1 mg PRN Q10MIN PRN IV SEVERE PAIN; Start 07/04/17 at 09:15; Stop 07/04/17 at 18:00 Ringer's Solution 1,000 ml @ 30 mls/hr Q24H IV ; Start 07/04/17 at 09:08; Stop 07/04/17 at 21:07 Lidocaine HCl (Xylocaine-Mpf 1% Vial) 2 ml 1X PRN PRN ID IV START; Start 07/04 at 09:15; Stop 07/04/17 at 18:00 Hydromorphone HCl (Dilaudid) 0.5 mg PRN Q10MIN PRN IV SEV PAIN, Second choice; Start 07/04/17 at 09:15; Stop 07/04/17 at 18:00 Prochlorperazine Edisylate (Compazine) 5 mg PACU PRN PRN IV NAUSEA, MRX1; Start 07/04/17 at 09:15; Stop 07/04/17 at 18:00 Active Scripts Active Reported Hydralazine Hcl 50 Mg Tablet 50 Mg PO BID Aspirin 81 Mg Tab.chew 81 Mg PO Atorvastatin Calcium 20 Mg Tablet 20 Mg PO HS Amlodipine Besylate 10 Mg Tablet 10 Mg PO DAILY Benazepril Hcl 40 Mg Tablet 40 Mg PO DAILY Atenolol 100 Mg Tablet 100 Mg PO DAILY Vitals/I & O Vital Sign - Last 24 Hours 07/03/17 07/03/17 07/03/17 07/03/17 15:35 19:00 19:05 23:00 Temp 97.7 96.6 96.5 97.7 96.6 96.5 Pulse 63 76 67 Resp 18 18 18 B/P (MAP) 116/61 (79) 146/82 (103) 142/63 (89) Pulse Ox 95 97 96 O2 Delivery Room Air Room Air Room Air Room Air 07/04/17 07/04/17 07/04/17 07/04/17 03:00 07:00 07:30 08:53 Temp 96.9 97.1 96.9 97.1 Pulse 70 72 72 Resp 18 18 B/P (MAP) 129/74 (92) 112/64 (80) 112/64 Pulse Ox 95 98 O2 Delivery Room Air Room Air Room Air 07/04/17 07/04/17 08:54 08:54 Pulse 72 72 B/P (MAP) 112/64 112/64 Intake and Output 07/03/17 07/03/17 07/04/17 15:00 23:00 07:00 Intake Total 360 ml 1360 ml 1360 ml Balance 360 ml 1360 ml 1360 ml MACK LAWS MD Jul 04, 2017 11:15
[2017-07-04] MEDS ORDERED: LIDOCAINE 2% PF Vial for OR 5 ML VIAL. ONE (15:42)
[2017-07-04] MEDS ORDERED: PROPOFOL 20 ML IV ONE ×2 (15:42→16:24)
[2017-07-04] MEDS ORDERED: EPINEPHrine SYRINGE 1 MG/10 ML SYRINGE IV ONE (16:18)
--- NOTE | 2017-07-04 16:38 | PDOC4 ---
Operative Note Operative Note EGD with bx/therapeutic control of bleeding Meds propofol per anesthesia Pre-op dx acute blood loss anemia/melena Post-op dx non-erosive gastritis s/p bx duodenal ulcer 2d portion medical wall s/p epi injectoin/endo- clip/bipolar cautery Plan PPI therapy Serial CBCs advance diet in am if Hg stable. VERONICA PURCELL MD Jul 04, 2017 16:38
[2017-07-04] MEDS ORDERED: EPINEPHrine SYRINGE 1 MG/10 ML SYRINGE ONE (16:56)
[2017-07-04 19:00] VITALS: BP 123/62
[2017-07-04] MEDS: ATORVASTATIN CALCIUM 20 MG TABLET PO SCH (20:53)
[2017-07-04 23:00] VITALS: BP 133/63
[2017-07-05] MEDS: IV NORMAL SALINE 1000ML BAG 1,000 ML IV SCH ×3 (01:03→20:36)
[2017-07-05 03:00] VITALS: BP 131/65
[2017-07-05 06:12] LABS: HEMATOCRIT 24.6 % (36.0-47.0); HEMOGLOBIN 8.2 g/dL (12.0-15.5)
[2017-07-05 07:00] VITALS: BP 132/74
[2017-07-05] MEDS: PANTOPRAZOLE IV PUSH 40 MG VIAL. IVP SCH (07:32)
[2017-07-05] MEDS: ATENOLOL 50 MG TABLET. PO SCH (09:13)
[2017-07-05] MEDS: amLODIPine BESYLATE 10 MG TABLET PO SCH (09:13)
[2017-07-05] MEDS: LISINOPRIL 40 MG TABLET. PO SCH (09:14)
--- NOTE | 2017-07-05 10:07 | PDOC ---
PROGRESS NOTES Chief Complaint Chief Complaint Duodenal ulcer by EGD 07/04 status post cautery, clipping, epinephrine injection Melena Morbid obesity BMI 47.7 Hypertension, controlled Headaches History of Present Illness History of Present Illness EGD results noted, duodenal ulcer status post epinephrine, clipping, cautery Some mild melena today and yesterday postprocedure, but patient claims it's coming down Hemoglobin slightly dropped to 8.2 from 8.6 yesterday from 10 the previous day Vital signs remain stable No headaches She describes the headaches to me as feeling "sinusitis and stuffy" That's why she took one hold bottle of ibuprofen and finished this in 2 days Did discuss about H2 antagonist which is [id number] and even Flonase nasal sprays. She understands. She is hungry, wants to go home soon Plan: Started on ice chips by GI, we'll defer diet to them Patient understands H&H tomorrow Possible discharge 24-48 hrs. Understands that she cannot take aspirin or NSAIDs anymore Vitals Vitals Vital Signs Date Time Temp Pulse Resp B/P (MAP) Pulse Ox O2 Delivery O2 Flow Rate FiO2 07/05/17 09:14 68 132/74 07/05/17 07:30 Room Air 07/05/17 07:00 97.9 20 96 97.9 07/04/17 16:31 4 Physical Exam General: Alert, Oriented X3, Cooperative, No acute distress Heart: Regular rate Lungs: Clear Abdomen: Normal bowel sounds, Soft (not tender, very obese) Extremities: No clubbing, No cyanosis, No edema, Normal pulses Skin: No rashes, No breakdown Labs LABS Laboratory Tests Test 07/05/17 03:35 Hemoglobin 8.2 g/dL (12.0-15.5) Hematocrit 24.6 % (36.0-47.0) Mean Corpuscular Hemoglobin Concent 33 g/dL (31-37) Review of Systems Review of Systems Denies 14 point systems reviewed with her Assessment and Plan Assessmemt and Plan Problems Medical Problems: (1) Anemia Status: Acute (2) GI bleed Status: Acute Problems: Comment Review of Relevant I have reviewed the following items sarah (where applicable) has been applied. Labs Laboratory Tests Test 07/04/17 03:30 07/05/17 03:35 White Blood Count 9.2 x10^3/uL (4.0-11.0) Red Blood Count 2.86 x10^6/uL (3.50-5.40) Hemoglobin 8.6 g/dL (12.0-15.5) 8.2 g/dL (12.0-15.5) Hematocrit 26.7 % (36.0-47.0) 24.6 % (36.0-47.0) Mean Corpuscular Volume 93 fL (79-100) Mean Corpuscular Hemoglobin 30 pg (25-35) Mean Corpuscular Hemoglobin Concent 32 g/dL (31-37) 33 g/dL (31-37) Red Cell Distribution Width 14.6 % (11.5-14.5) Platelet Count 326 x10^3/uL (140-400) Neutrophils (%) (Auto) 67 % (31-73) Lymphocytes (%) (Auto) 23 % (24-48) Monocytes (%) (Auto) 7 % (0-9) Eosinophils (%) (Auto) 2 % (0-3) Basophils (%) (Auto) 1 % (0-3) Neutrophils # (Auto) 6.2 x10^3uL (1.8-7.7) Lymphocytes # (Auto) 2.1 x10^3/uL (1.0-4.8) Monocytes # (Auto) 0.6 x10^3/uL (0.0-1.1) Eosinophils # (Auto) 0.2 x10^3/uL (0.0-0.7) Basophils # (Auto) 0.1 x10^3/uL (0.0-0.2) Laboratory Tests Test 07/05/17 03:35 Hemoglobin 8.2 g/dL (12.0-15.5) Hematocrit 24.6 % (36.0-47.0) Mean Corpuscular Hemoglobin Concent 33 g/dL (31-37) Medications Current Medications Sodium Chloride 1,000 ml @ 100 mls/hr Q10H IV Last administered on 07/04/17 05:58; Start 07/03/17 at 09:40; Stop 07/04/17 at 09:39; Status DC Pantoprazole Sodium (PROTONIX VIAL for IV PUSH) 40 mg 1X ONCE IVP Last administered on 07/03/17 10:00; Start 07/03/17 at 09:45; Stop 07/03/17 at 09 :46; Status DC Pantoprazole Sodium (PROTONIX VIAL for IV PUSH) 40 mg DAILYAC IVP Last administered on 07/05/17 07:32; Start 07/03/17 at 11:00 Amlodipine Besylate (Norvasc) 10 mg DAILY PO Last administered on 07/05/17 09 :13; Start 07/03/17 at 12:00 Atorvastatin Calcium (Lipitor) 20 mg HS PO Last administered on 07/04/17 20: 53; Start 07/03/17 at 21:00 Atenolol (Tenormin) 100 mg DAILY PO Last administered on 07/05/17 09:13; Start 07/03/17 at 12:00 Lisinopril (Prinivil) 40 mg DAILY PO Last administered on 07/05/17 09:14; Start 07/03/17 at 12:00 Ondansetron HCl (Zofran) 4 mg PRN Q6HRS PRN IV NAUSEA/VOMITING; Start at 09:15; Stop 07/04/17 at 18:00; Status DC Fentanyl Citrate (Fentanyl 2ml Vial) 25 mcg PRN Q5MIN PRN IV MILD PAIN; Start 07/04/17 at 09:15; Stop 07/04/17 at 18:00; Status DC Fentanyl Citrate (Fentanyl 2ml Vial) 50 mcg PRN Q5MIN PRN IV MODERATE TO SEVERE PAIN; Start 07/04/17 at 09:15; Stop 07/04/17 at 09:16; Status DC Morphine Sulfate 1 mg PRN Q10MIN PRN IV SEVERE PAIN; Start 07/04/17 at 09:15; Stop 07/04/17 at 18:00; Status DC Ringer's Solution 1,000 ml @ 30 mls/hr Q24H IV Last administered on 14:52; Start 07/04/17 at 09:08; Stop 07/04/17 at 21:07; Status DC Lidocaine HCl (Xylocaine-Mpf 1% Vial) 2 ml 1X PRN PRN ID IV START; Start 07/04 at 09:15; Stop 07/04/17 at 18:00; Status DC Hydromorphone HCl (Dilaudid) 0.5 mg PRN Q10MIN PRN IV SEV PAIN, Second choice; Start 07/04/17 at 09:15; Stop 07/04/17 at 18:00; Status DC Prochlorperazine Edisylate (Compazine) 5 mg PACU PRN PRN IV NAUSEA, MRX1; Start 07/04/17 at 09:15; Stop 07/04/17 at 18:00; Status DC Propofol 20 ml @ As Directed STK-MED ONCE IV ; Start 07/04/17 at 15:42; Stop 07/04/17 at 15:43; Status DC Lidocaine HCl (Lidocaine Pf 2% Vial) 5 ml STK-MED ONCE .ROUTE ; Start 07/04/17 at 15:42; Stop 07/04/17 at 15:43; Status DC Epinephrine HCl (EPINEPHrine SYRINGE) 1 mg STK-MED ONCE IV Last administered on 07/04/17 16:18; Start 07/04/17 at 16:18; Stop 07/04/17 at 16:28; Status DC Propofol 20 ml @ As Directed STK-MED ONCE IV ; Start 07/04/17 at 16:24; Stop 07/04/17 at 16:25; Status DC Epinephrine HCl (EPINEPHrine SYRINGE) 1 mg STK-MED ONCE .ROUTE ; Start at 16:56; Stop 07/04/17 at 16:57; Status DC Sodium Chloride 1,000 ml @ 100 mls/hr Q10H IV Last administered on 07/05/17 07:33; Start 07/05/17 at 01:00 Active Scripts Active Reported Hydralazine Hcl 50 Mg Tablet 50 Mg PO BID Aspirin 81 Mg Tab.chew 81 Mg PO Atorvastatin Calcium 20 Mg Tablet 20 Mg PO HS Amlodipine Besylate 10 Mg Tablet 10 Mg PO DAILY Benazepril Hcl 40 Mg Tablet 40 Mg PO DAILY Atenolol 100 Mg Tablet 100 Mg PO DAILY Vitals/I & O Vital Sign - Last 24 Hours 07/04/17 07/04/17 07/04/17 07/04/17 11:00 14:51 16:31 16:46 Temp 97.2 98.6 97.2 98.6 Pulse 60 66 65 Resp 18 20 20 B/P (MAP) 120/43 (68) 130/57 134/65 Pulse Ox 98 93 98 O2 Delivery Room Air Room Air Nasal Cannula Room Air O2 Flow Rate 4 07/04/17 07/04/17 07/04/17 07/05/17 16:55 19:00 23:00 03:00 Temp 93.4 97.7 97.3 93.4 97.7 97.3 Pulse 72 60 60 65 Resp 20 18 18 18 B/P (MAP) 114/54 123/62 (82) 133/63 (86) 131/65 (87) Pulse Ox 98 95 95 95 O2 Delivery Room Air Room Air Room Air 07/05/17 07/05/17 07/05/17 07/05/17 07:00 07:30 09:13 09:13 Temp 97.9 97.9 Pulse 68 68 68 Resp 20 B/P (MAP) 132/74 (93) 132/74 132/74 Pulse Ox 96 O2 Delivery Room Air Room Air 07/05/17 09:14 Pulse 68 B/P (MAP) 132/74 Intake and Output 07/04/17 07/04/17 07/05/17 15:00 23:00 07:00 Intake Total 0 ml Balance 0 ml MACK LAWS MD Jul 05, 2017 10:07
[2017-07-05 10:56] VITALS: BP 126/61
--- NOTE | 2017-07-05 13:02 | PDOC ---
Subjective: Subjective: Really wants to eat and discharge. Had a stool this morning, showed the nurse, thinks was "bloody" (actually clarifies was dark). Objective: Objective: Per RN - small stool this morning, was dark like leftover blood. Vital Signs: Vital Signs Date Time Temp Pulse Resp B/P (MAP) Pulse Ox O2 Delivery O2 Flow Rate FiO2 07/05/17 10:56 97.8 56 20 126/61 (82) 98 Room Air 97.8 07/04/17 16:31 4 Labs: Laboratory Tests Test 07/05/17 03:35 Hemoglobin 8.2 g/dL Hematocrit 24.6 % Mean Corpuscular Hemoglobin Concent 33 g/dL Imaging: EGD 07/04/17 non-erosive gastritis s/p bx duodenal ulcer 2nd portion medical wall s/p epi injection/endo-clip/bipolar cautery PE: GEN: NAD, up to chair LUNGS: clear HEART: bradycardic ABD: NABS, S/ND/NT NEURO/PSYCH: A & O 3 A/P: Duodenal ulcer s/p endotherapy Melena - resolving Anemia - Hgb stable -- Change to PO PPI. She really doesn't want clear liquids - try full liquids, ADAT. FLORA CARRILLO Jul 05, 2017 13:02
[2017-07-05 15:00] VITALS: BP 117/62
[2017-07-05 19:00] VITALS: BP_SYST 113; BP_SYST 133; BP_DIAS 67; BP_DIAS 70
[2017-07-05] MEDS: ATORVASTATIN CALCIUM 20 MG TABLET PO SCH (20:48)
[2017-07-05 23:00] VITALS: BP 123/71
[2017-07-06 02:40] VITALS: BP 143/76
[2017-07-06] MEDS: IV NORMAL SALINE 1000ML BAG 1,000 ML IV SCH (06:30)
[2017-07-06 07:00] VITALS: BP 147/73
[2017-07-06] MEDS ORDERED: PANTOPRAZOLE 40 MG TABLET.DR. PO SCH (07:30)
[2017-07-06 08:18] VITALS: BP 147/73
[2017-07-06 08:46] LABS: HEMATOCRIT 26.4 % (36.0-47.0); HEMOGLOBIN 8.6 g/dL (12.0-15.5)
[2017-07-06] MEDS ORDERED: PANT40TA3 PO (08:48)
--- NOTE | 2017-07-06 08:51 | PDOC3 ---
Discharge Summary Visit Information Date of Admission: Jul 03, 2017 Date of Discharge: Jul 06, 2017 Admitting Diagnosis Comment: Duodenal ulcer by EGD 07/04 status post cautery, clipping, epinephrine injection Melena Morbid obesity BMI 47.7 Hypertension, controlled Headaches Final Diagnosis Problems Medical Problems: (1) Anemia Status: Acute (2) GI bleed Status: Acute Brief Hospital Course Allergies Allergies Coded Allergies Type Severity Reaction Last Updated Verified No Known Drug Allergies 07/04/17 No Vital Signs Vital Signs Date Time Temp Pulse Resp B/P (MAP) Pulse Ox O2 Delivery O2 Flow Rate FiO2 07/06/17 08:18 97.5 63 18 147/73 (97) Room Air 97.5 07/06/17 02:40 96 Lab Results Laboratory Tests Test 07/05/17 03:35 Hemoglobin 8.2 g/dL (12.0-15.5) Hematocrit 24.6 % (36.0-47.0) Mean Corpuscular Hemoglobin Concent 33 g/dL (31-37) Brief Hospital Course Ms. Weaver is a 71 old very pleasant female who was taking numerous NSAIDs she, she would be able to consume one bottle in a span of 2 days.for severe headaches. She came because of melena, underwent EGD, found to have a duodenal ulcer that was bleeding and subsequently clipped, cauterized and epinephrine injection. Some streaking melena postprocedure - not unusual. Hemoglobin stable upon discharge. 8.2 on discharge. I advised to stop aspirin and she understands. Advised to take Tylenol for her headaches she understands. PPI is 40 mg 1 tablet once a day center pharmacy at [facility] Patient seen and examined Procedures performed EGD by Dr. Singleton Consults performed GI procedure Discharge transition to home Discharge Information Condition at Discharge: Improved, Stable Disposition/Orders: D/C to Home Scheduled Amlodipine Besylate (Amlodipine Besylate), 10 MG PO DAILY, (Reported) Atenolol (Atenolol), 100 MG PO DAILY, (Reported) Atorvastatin Calcium (Atorvastatin Calcium), 20 MG PO HS, (Reported) Benazepril Hcl (Benazepril Hcl), 40 MG PO DAILY, (Reported) Hydralazine Hcl (Hydralazine Hcl), 50 MG PO BID, (Reported) Miscellaneous Medications Aspirin (Aspirin), 81 MG PO, (Reported) TERMULO,MACK Y MD Jul 06, 2017 08:51
[2017-07-06] MEDS: LISINOPRIL 40 MG TABLET. PO SCH (10:42)
[2017-07-06] MEDS: ATENOLOL 50 MG TABLET. PO SCH (10:43)
[2017-07-06] MEDS: amLODIPine BESYLATE 10 MG TABLET PO SCH (10:43)
[2017-07-06 11:00] VITALS: BP 131/63
--- NOTE | 2017-07-06 11:15 | PATHOLOGY ---
PATHOLOGY REPORT * * * * * * * * FINAL DIAGNOSIS: Gastric biopsy: - Slight superficial chronic inflammation. COMMENT: Sections of the gastric biopsy reveal segments of gastric body mucosa showing slight superficial chronic inflammation. A properly controlled immunoperoxidase stain for Helicobacter is obtained. No Helicobacter organisms are identified. There is no evidence of malignancy. (JPM:pit; 07/06/2017) Special stain: Immunoperoxidase for Helicobacter REPORT ELECTRONICALLY SIGNED BY: Dewayne Portillo M.D. DATE/TIME: 07/06/2017 11:11 * * * * * * * * GROSS PATHOLOGY: Received in formalin labeled "Alison Weaver, gastric BX's rule out H. pylori," are 4 segments of miguel soft tissue measuring 1.5 x 0.6 x 0.2 cm in aggregate dimensions and ranging from 0.2 to 0.7 cm in maximum dimension. The specimen is submitted entirely in cassette A1. (TSD; 07/05/2017) INITIAL CPT CODE(S): A; 28421, 69084 Professional services performed [place] [address] Technical services performed by [facility] at [address] [place] [address]. SPECIMEN(S) RECEIVED: A.Gastric biopsies CLINICAL HISTORY: GI bleed, anemia PATIENT: ALISON WEAVER /AGE: 612/11/1945 (Age: 71) PATIENT #: [id number] ALT CASE #: SPECIMEN COLLECTION DATE: 07/04/2017 SPECIMEN RECEIVED DATE: 07/05/2017 [facility] - [address] [place] [address] - PHONE: [phone] * * * END OF REPORT * * *
--- NOTE | 2017-07-06 12:31 | PDOC ---
Subjective: Subjective: No complaints except wants to leave. No bleeding, tolerating PO. Objective: Objective: Note DC orders. Vital Signs: Vital Signs Date Time Temp Pulse Resp B/P (MAP) Pulse Ox O2 Delivery O2 Flow Rate FiO2 07/06/17 11:00 97.7 63 20 131/63 (85) 94 Room Air 97.7 Labs: Laboratory Tests Test 07/06/17 08:40 Hemoglobin 8.6 g/dL Hematocrit 26.4 % Mean Corpuscular Hemoglobin Concent 33 g/dL PE: GEN: NAD, up to chair LUNGS: CTAB HEART: RRR ABD: S/ND/NT NEURO/PSYCH: A & O 3 A/P: Duodenal ulcer s/p endotherapy Melena - resolved Anemia - Hgb stable -- DC per primary, continue PPI, avoid NSAIDs/ASA. FLORA CARRILLO Jul 06, 2017 12:31
== END 2017-07-06 12:30 | disposition home or self-care (01) | DRG 377 ==
LOC: ER 08:18 → 5 NORTH 09:19
PROVIDERS: ADMIT Internal Medicine; ATTEND Internal Medicine
PROC: 3E0G8GC Introduction of Other Therapeutic Substance into Upper GI, Via Natural or Artificial Opening Endoscopic (ICD-10-PCS; 2017-07-03)
PROC: 0W3P8ZZ Control Bleeding in Gastrointestinal Tract, Via Natural or Artificial Opening Endoscopic (ICD-10-PCS; principal; 2017-07-04 16:00)
PROC: 0DB68ZX Excision of Stomach, Via Natural or Artificial Opening Endoscopic, Diagnostic (ICD-10-PCS; 2017-07-04 16:00)
DX: K26.4 Chronic or unspecified duodenal ulcer with hemorrhage (principal); E43 Unspecified severe protein-calorie malnutrition; D62 Acute posthemorrhagic anemia; Z68.42 Body mass index [BMI] 45.0-49.9, adult; E66.01 Morbid (severe) obesity due to excess calories; K29.00 Acute gastritis without bleeding; E78.00 Pure hypercholesterolemia, unspecified; E78.5 Hyperlipidemia, unspecified; I10 Essential (primary) hypertension; K29.70 Gastritis, unspecified, without bleeding; R32 Unspecified urinary incontinence; M19.90 Unspecified osteoarthritis, unspecified site; T39.395A Adverse effect of other nonsteroidal anti-inflammatory drugs [NSAID], initial encounter; Z90.710 Acquired absence of both cervix and uterus; Z79.82 Long term (current) use of aspirin; Z79.899 Other long term (current) drug therapy
CPT/HCPCS: 36415; 80053; 82274; 85014; 85018; 85025; 85027; 85610; 85730; 86850; 86900; 86901; 88305; 88342; 96374; C9113; J0171; J2704; J7030; J7120; 99285-25; J2001

== ENCOUNTER → 2020-05-04 | Outpatient (CLI) | payer MEDICARE ==
[2020-04-14 15:01] VITALS: BP 172/86
[~2020-05-04] MED LIST changes: +AMLO-187 PO; -AMLO10TA2 PO; -BENA40TA2 PO; +BENA40TA3 PO; +DOCU-153 PO; +HYDR-2761 PO; +PANT40TA77 PO
--- NOTE | 2020-05-04 10:13 | RAD ---
EXAM: HEPATOBILIARY SCINTIGRAPHY. HISTORY: Biliary leak. Status post cholecystectomy. TECHNIQUE: 5.5 mCi technetium-99m Choletec were administered intravenously and scintigraphic images of the abdomen obtained. FINDINGS: Clearance of activity from the blood pool is mildly delayed. There is homogeneous activity within the liver. There is normal excretion into the biliary tree and small bowel. No abnormal accumulation of extraluminal activity is identified. IMPRESSION: 1. No biliary leak is identified. 2. Mildly delayed clearance of activity from the blood pool. Correlate for hepatocellular dysfunction. Electronically signed by: Cordelia Ramos MD (05/04/2020 10:10 AM) [id number]
== END ==
LOC: NM 09:44
PROVIDERS: ATTEND Nurse Practitioner Family
DX: K83.9 Disease of biliary tract, unspecified (principal); Z90.49 Acquired absence of other specified parts of digestive tract
CPT/HCPCS: 78226; A9537; 96374